=== PATIENT | female | born 1995 | race Caucasian/White ===

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

== ENCOUNTER → 2017-05-11 | Outpatient (CLI) | payer MEDICAID ==
[~2017-05-11] MED LIST changes: +ACYCLOVIR800 MG PO; +ELIMITE 5%60 GM/TUB1 TP; +FERROUS SULFAT200 M1 PO; +HYDROXYZINE HCL25 M1 PO; +PRENATAL MULTI1 EAC3 PO
== END ==
LOC: LAB 12:19
DX: Z36 Encounter for antenatal screening of mother (principal)